=== PATIENT | female | born 1955 | race Two or more races ===

== ENCOUNTER 2019-03-10 17:03 | Emergency (ER) | payer OTHER ==
[~2019-03-10] VITALS: Ht 170.2 cm; Wt 77.1 kg
--- NOTE | 2019-03-10 17:45 | NUR ---
Urine cup provided.
[2019-03-10 17:53] LABS: BASOPHILS % (AUTO) 0.3 % (0.0-2.0); EOSINOPHILS # (AUTO) 0.1 K/uL (0.0-0.7); EOSINOPHILS % (AUTO) 0.7 % (0.0-7.0); HEMATOCRIT 42.4 % (31.2-41.9); HEMOGLOBIN 14.2 g/dL (10.9-14.3); LYMPHOCYTES # (AUTO) 1.9 K/uL (20.0-40.0); LYMPHOCYTES % (AUTO) 24.9 % (20.5-51.5); MEAN CORPUSCULAR HEMOGLOBIN 29.7 uug (24.7-32.8); MEAN CORPUSCULAR HGB CONC 34 g/dL (32.3-35.6); MEAN CORPUSCULAR VOLUME 88.8 fL (75.5-95.3); MONOCYTES # (AUTO) 0.7 K/uL (2.0-10.0); MONOCYTES % (AUTO) 8.8 % (0.0-11.0); NEUTROPHILS # (AUTO) 4.9 K/uL (1.8-8.9); NEUTROPHILS % (AUTO) 65.3 % (38.5-71.5); PLATELET COUNT (AUTO) 163 K/uL (179-408); RED BLOOD CELL COUNT(AUTO) 4.78 MIL/uL (3.63-4.92); WHITE BLOOD COUNT (AUTO) 7.5 K/uL (3.8-11.8)
[2019-03-10 18:00] LABS: CREATININE 0.5 mg/dL (0.6-1.3); POTASSIUM 3.6 mmol/L (3.5-5.1)
[2019-03-10] MEDS ORDERED: CLINDAMYCIN PHOSPHATE IV 900 MG in IV DEXTROSE 5% 100 ML IV ONE (18:00)
--- NOTE | 2019-03-10 18:03 | NUR ---
Patient is in the bathroom right now.
[2019-03-10 18:06] LABS: BILIRUBIN,DIRECT 0.1 mg/dL (0.0-0.2); BILIRUBIN,TOTAL 0.6 mg/dL (0.2-1.0); TOTAL PROTEIN, SERUM 7.6 g/dL (6.4-8.2)
--- NOTE | 2019-03-10 18:35 | NUR ---
pending urine sample & CT scan@this time. [facility].
[2019-03-10] MEDS ORDERED: IV NORMAL SALINE 250 ML IV ONE (18:39)
[2019-03-10] MEDS ORDERED: IOHEXOL 300MG/ML 100 ML INFUS..BTL ONE (18:39)
[2019-03-10] MEDS ORDERED: SWABABLE VALVE TRANSFER SET EA MC ONE (18:39)
[2019-03-10 18:58] LABS: *BILIRUBIN,URIN NEGATIVE (NEGATIVE); *BLOOD, URINE 1+ (NEGATIVE); *CLARITY,URINE CLEAR (CLEAR); *KETONES,URINE NEGATIVE (NEGATIVE); *UROBILINOGEN,URINE 0.2 E.U./dl (NORMAL); LEUKOCYTE ESTERASE ,URINE NEGATIVE (NEGATIVE); NITRITE, URINE NEGATIVE (NEGATIVE); UGLUCOSE NEGATIVE (NEGATIVE)
--- NOTE | 2019-03-10 19:00 | NUR ---
shift report received from RAM[facility]RE[facility] Stone.
[2019-03-10 19:05] LABS: *COLOR,URINE LIGHT YELLOW (YELLOW)
[2019-03-10 19:06] LABS: SQUAMOUS EPITHELIAL CELL,UR FEW /HPF (NONE SEEN); WBC,URINE 0-3 /HPF (0-3)
--- NOTE | 2019-03-10 19:20 | NUR ---
patient getting CT
--- NOTE | 2019-03-10 19:41 | NUR ---
patient returned back from CT.
--- NOTE | 2019-03-10 19:53 | NUR ---
called and spoke to Jass from [employer]. cancelled transfer to [facility] for CT scan. Patient was able to have CT scan doen at the facility.
--- NOTE | 2019-03-10 20:39 | NUR ---
Patient discharged to home in stable conditon. Written and verbal after care instructions given. Patient verbalizes understanding of instructions. patient alert and oriented. patient able to ambulate self. patient will not be driving home and will be picked up by daughters friend. all belongings and exitcare package was taken with the patient.
[2019-03-10 20:58] VITALS: BP 140/82
== END 2019-03-10 21:00 | disposition home or self-care (01) ==
LOC: ER 17:05
DX: S80.02XA Contusion of left knee, initial encounter (principal); R22.0 Localized swelling, mass and lump, head; R30.0 Dysuria; Z88.1 Allergy status to other antibiotic agents; Z88.5 Allergy status to narcotic agent; V02.99XA Pedestrian with other conveyance injured in collision with two- or three-wheeled motor vehicle, unspecified whether traffic or nontraffic accident, initial encounter; Y93.89 Activity, other specified; Y92.89 Other specified places as the place of occurrence of the external cause; Y99.8 Other external cause status
CPT/HCPCS: 36415; 70487; 73564; 74176; 80048; 80076; 81000; 81001; 83605; 83690; 85025; 87040 ×2; 87086; 96365; 99284; J3490; J7060; Q9967; A4663; J7050

== ENCOUNTER 2019-05-19 15:07 | Emergency (ER) | payer OTHER ==
[~2019-05-19] VITALS: Ht 170.2 cm; Wt 81.2 kg
[2019-05-19 15:29] LABS: *BILIRUBIN,URIN NEGATIVE (NEGATIVE); *CLARITY,URINE CLEAR (CLEAR); *COLOR,URINE YELLOW (YELLOW); *KETONES,URINE NEGATIVE (NEGATIVE); *UROBILINOGEN,URINE 0.2 E.U./dl (NORMAL); LEUKOCYTE ESTERASE ,URINE NEGATIVE (NEGATIVE); NITRITE, URINE NEGATIVE (NEGATIVE); UGLUCOSE NEGATIVE (NEGATIVE)
[2019-05-19 15:36] LABS: *BLOOD, URINE TRACE (NEGATIVE)
[2019-05-19 15:37] LABS: MUCUS,URINE FEW /LPF (0-FEW); SQUAMOUS EPITHELIAL CELL,UR FEW /HPF (NONE SEEN); WBC,URINE 0-3 /HPF (0-3)
--- NOTE | 2019-05-19 17:42 | NUR ---
PATIENT WAS SEEN BY . LABS DRAWN.
[2019-05-19 17:43] LABS: BASOPHILS % (AUTO) 0.5 % (0.0-2.0); EOSINOPHILS # (AUTO) 0.1 K/uL (0.0-0.7); EOSINOPHILS % (AUTO) 1.1 % (0.0-7.0); HEMATOCRIT 43.4 % (31.2-41.9); HEMOGLOBIN 14.5 g/dL (10.9-14.3); LYMPHOCYTES # (AUTO) 1.7 K/uL (20.0-40.0); LYMPHOCYTES % (AUTO) 34.6 % (20.5-51.5); MEAN CORPUSCULAR HEMOGLOBIN 29.9 uug (24.7-32.8); MEAN CORPUSCULAR HGB CONC 33 g/dL (32.3-35.6); MEAN CORPUSCULAR VOLUME 89.6 fL (75.5-95.3); MONOCYTES # (AUTO) 0.3 K/uL (2.0-10.0); MONOCYTES % (AUTO) 5.8 % (0.0-11.0); NEUTROPHILS # (AUTO) 2.8 K/uL (1.8-8.9); PLATELET COUNT (AUTO) 185 K/uL (179-408); RED BLOOD CELL COUNT(AUTO) 4.84 MIL/uL (3.63-4.92); WHITE BLOOD COUNT (AUTO) 4.8 K/uL (3.8-11.8)
[2019-05-19 17:49] LABS: CREATININE 0.8 mg/dL (0.6-1.3); POTASSIUM 3.4 mmol/L (3.5-5.1)
[2019-05-19 17:54] LABS: BILIRUBIN,TOTAL 0.3 mg/dL (0.2-1.0); TOTAL PROTEIN, SERUM 7.3 g/dL (6.4-8.2)
[2019-05-19] MEDS ORDERED: SWABABLE VALVE TRANSFER SET EA MC ONE (18:04)
[2019-05-19] MEDS ORDERED: IOHEXOL 300MG/ML 100 ML INFUS..BTL ONE (18:04)
[2019-05-19] MEDS ORDERED: IV NORMAL SALINE 250 ML IV ONE (18:04)
[2019-05-19] MEDS ORDERED: IBUP-1955 PO (18:47)
[2019-05-19] MEDS ORDERED: ERGO500040 PO (18:52)
[2019-05-19] MEDS ORDERED: ALBU18HF2 IH (18:52)
[2019-05-19] MEDS ORDERED: POTA10TA15 PO (18:52)
[2019-05-19] MEDS ORDERED: EPIN0.3P3 IJ (18:52)
[2019-05-19] MEDS ORDERED: KETOROLAC TROMETHAMINE 30 MG INJ IVP ONE (19:00)
--- NOTE | 2019-05-19 19:00 | NUR ---
DC IV SALINE LOCK BY OUTGOING DAY SHIFT RN PENDING DISCHARGE
[2019-05-19] MEDS ORDERED: KETOROLAC TROMETHAMINE 30 MG INJ ONE (19:09)
--- NOTE | 2019-05-19 19:14 | NUR ---
when patient came back from CT, IV was notbworking anymore. I DC'd IV. IV site was not leaking, no redness or swelling noted. Hand off report given to Valeri ELMORE
--- NOTE | 2019-05-19 19:18 | NUR ---
Hand off report given to Valeri ELMORE
--- NOTE | 2019-05-19 19:19 | NUR ---
HAND OFF AND SBAR RECEIVED FROM OUTGOING DAY SHIFT RN
--- NOTE | 2019-05-19 19:35 | NUR ---
Patient discharged to home in stable conditon. Written and verbal after care instructions given. Patient verbalizes understanding of instructions. ambulatory w/ stable gait all belongings w/ pt
[2019-05-19 23:31] VITALS: BP 118/100
== END 2019-05-19 19:30 | disposition home or self-care (01) ==
LOC: ER 15:09
DX: S50.811A Abrasion of right forearm, initial encounter (principal); R31.9 Hematuria, unspecified; F12.10 Cannabis abuse, uncomplicated; Z88.1 Allergy status to other antibiotic agents; Z88.5 Allergy status to narcotic agent; Z79.1 Long term (current) use of non-steroidal anti-inflammatories (NSAID); Z79.899 Other long term (current) drug therapy; W55.03XA Scratched by cat, initial encounter; Y93.89 Activity, other specified; Y92.89 Other specified places as the place of occurrence of the external cause; Y99.8 Other external cause status
CPT/HCPCS: 36415; 71260; 74177; 80053; 81000; 81001; 85025; 87086; 99284; Q9967; A4663; J1885; J7050

== ENCOUNTER 2023-08-18 11:25 | Emergency (ER) | payer MEDICARE, MEDICAID ==
[~2023-08-18] VITALS: Ht 170.2 cm; Wt 81.2 kg
[~2023-08-18 11:25] MED LIST: ALBU18HF2 IH; EPIN0.3P3 IJ; ERGO500040 PO; POTA10TA15 PO
[2023-08-18] MEDS ORDERED: DOXYCYCLINE HYCLATE 100 MG TABLET PO ONE (13:00)
[2023-08-18] MEDS ORDERED: FLUCONAZOLE 100 MG TABLET PO ONE (13:00)
[2023-08-18] MEDS ORDERED: DOXY100C5 PO (13:02)
[2023-08-18] MEDS ORDERED: FLUC150T PO (13:02)
[2023-08-18] MEDS ORDERED: FLUCONAZOLE 100 MG TABLET ONE (13:07)
[2023-08-18] MEDS ORDERED: DOXYCYCLINE HYCLATE 100 MG TABLET ONE (13:07)
[2023-08-18 14:09] LABS: *BILIRUBIN,URIN NEGATIVE (NEGATIVE); *CLARITY,URINE CLEAR (CLEAR); *COLOR,URINE YELLOW (YELLOW); *KETONES,URINE NEGATIVE (NEGATIVE); *UROBILINOGEN,URINE 0.2 E.U./dl (NORMAL); LEUKOCYTE ESTERASE ,URINE NEGATIVE (NEGATIVE); NITRITE, URINE NEGATIVE (NEGATIVE); PH,URINE 6.5 (5.0-8.0); UGLUCOSE NEGATIVE (NEGATIVE)
[2023-08-18 14:31] LABS: *BLOOD, URINE NEGATIVE (NEGATIVE)
[2023-08-18 14:32] LABS: *PROTEIN,URINE NEGATIVE (NEGATIVE)
[2023-08-18 15:16] VITALS: BP 118/80; TEMP 98; O2SAT 99
== END 2023-08-18 15:16 | disposition home or self-care (01) ==
LOC: ER 11:43
DX: N39.0 Urinary tract infection, site not specified (principal); Z79.899 Other long term (current) drug therapy; Z60.2 Problems related to living alone; Z88.5 Allergy status to narcotic agent; Z88.1 Allergy status to other antibiotic agents
CPT/HCPCS: A4606; A4663